=== PATIENT | male | born 1970 | race Caucasian/White ===

== ENCOUNTER 2017-09-07 16:19 | Emergency (ER) | payer SELFPAY ==
[~2017-09-07] VITALS: Ht 175.3 cm; Wt 76.2 kg
[2017-09-07 16:22] VITALS: BP 126/80
== END 2017-09-07 17:35 | disposition home or self-care (01) ==
LOC: ED 16:20
DX: K62.5 Hemorrhage of anus and rectum (principal); F17.200 Nicotine dependence, unspecified, uncomplicated
CPT/HCPCS: 99283